=== PATIENT | male | born 1950 | race Caucasian/White ===

== ENCOUNTER 2020-05-21 09:38 | Day surgery (SDC) | payer MEDICARE, MEDICAID ==
[2020-05-21] VITALS (9 sets, daily range): BP systolic 112–154; BP diastolic 54–79
[~2020-05-21] VITALS: Ht 190.5 cm; Wt 63.9 kg
[2020-05-21] MEDS ORDERED: diphenhydrAMINE 25mg capsule PO PRN (10:10)
[2020-05-21] MEDS ORDERED: normal saline 1,000 ML IV SCH (10:10)
[2020-05-21 10:16] LABS: BASOPHILS % (AUTO) 0.4 % (0-1); EOSINOPHILS # (AUTO) 0.3 X10'3 (0-0.9); EOSINOPHILS % (AUTO) 2.8 % (0-6); HEMATOCRIT 42.7 % (42.0-52.0); HEMOGLOBIN 14.5 g/dl (14.0-17.9); LYMPHOCYTES # (AUTO) 1.6 X10'3 (1.1-4.8); LYMPHOCYTES % (AUTO) 15.5 % (21-51); MEAN CORPUSCULAR HEMOGLOBIN 32.9 PG (27.0-31.0); MEAN CORPUSCULAR VOLUME 96.6 FL (78-98); MEAN PLATELET VOLUME 7.7 FL (7.4-10.4); MONOCYTES # (AUTO) 0.9 X10'3 (0-0.9); MONOCYTES % (AUTO) 8.4 % (2-12); NEUTROPHILS # (AUTO) 7.5 X10'3 (1.8-7.7); NEUTROPHILS % (AUTO) 72.9 % (42-75); PLATELET COUNT 286 X10'3 (140-440); RED BLOOD COUNT 4.42 X10'6 (4.70-6.10); RED CELL DISTRIBUTION WIDTH 12.7 % (11.5-14.5); WHITE BLOOD COUNT 10.2 X10'3 (4.5-11.0)
[2020-05-21 10:26] LABS: ALBUMIN 3.7 G/DL (3.4-5.0); ANION GAP 5 (8-16); BLOOD UREA NITROGEN 19 MG/DL (7-18); CALCIUM 9.3 MG/DL (8.5-10.1); CHLORIDE 101 MMOL/L (99-107); CREATININE 1.46 MG/DL (0.60-1.10); GLUCOSE 144 MG/DL (70-104); MAGNESIUM 1.7 MG/DL (1.5-2.4); POTASSIUM 4.9 MMOL/L (3.5-5.1); SODIUM 137 MMOL/L (135-145); TOTAL CARBON DIOXIDE 31.5 MMOL/L (24-32); eGFR 48 ML/MIN
[2020-05-21] MEDS ORDERED: FOLIC ACID PO (10:28)
[2020-05-21] MEDS ORDERED: NABU-136 PO (10:28)
[2020-05-21] MEDS ORDERED: GABA600T13 PO (10:28)
[2020-05-21] MEDS ORDERED: ISOS60TA4 PO (10:28)
[2020-05-21] MEDS ORDERED: PROP10TA10 PO (10:28)
[2020-05-21] MEDS ORDERED: NITR0.4T48 PO (10:28)
[2020-05-21] MEDS ORDERED: PANT20TA18 PO (10:28)
[2020-05-21] MEDS ORDERED: FLUO-1 PO (10:28)
[2020-05-21] MEDS ORDERED: LEVO75TA7 PO (10:38)
[2020-05-21] MEDS ORDERED: METF1000 PO (10:38)
[2020-05-21] MEDS ORDERED: ASPI-611 PO (10:38)
[2020-05-21] MEDS ORDERED: MULT-1172 (10:38)
[2020-05-21] MEDS ORDERED: FERROUS SULFATE PO (10:38)
[2020-05-21] MEDS ORDERED: VITAMIN B (10:38)
[2020-05-21] MEDS ORDERED: BUSP30TA2 PO (10:38)
[2020-05-21] MEDS ORDERED: KCL (10:38)
[2020-05-21] MEDS ORDERED: ATOR40TA PO (10:38)
[2020-05-21] MEDS ORDERED: fentaNYL/PF 50MCG/1 ML 2ML syringe ONE (14:10)
[2020-05-21] MEDS ORDERED: iohexol 350 MG/ML 50ML vial IV ONE (14:10)
[2020-05-21] MEDS ORDERED: heparin 1,000unit/ml 10ml vial 10 ML ONE (14:10)
[2020-05-21] MEDS ORDERED: iohexol 350MG/ML 100ml bottle IV ONE (14:10)
[2020-05-21] MEDS ORDERED: proCHLORperazine 10 MG/2 ml inj ONE (14:10)
[2020-05-21] MEDS ORDERED: midazolam 2 mg/2 ml injection ONE (14:10)
[2020-05-21] MEDS ORDERED: LIDOcaine 1% (10mg/ml)w/preservative injection 20ml MDV ONE (14:35)
[2020-05-21] MEDS ORDERED: normal saline 1,000 ML IV ONE (15:25)
[2020-05-21] MEDS ORDERED: HYDROcodone/acetaminophen 10/325mg tab PO PRN (15:30)
[2020-05-21] MEDS ORDERED: proCHLORperazine 10 MG/2 ml inj IV PRN (15:30)
[2020-05-21] MEDS ORDERED: HYDROcodone/acetaminophen 5mg/325mg tablet PO PRN (15:30)
[2020-05-21] MEDS ORDERED: ondansetron/PF 4mg/2ml inj IV PRN (15:30)
== END 2020-05-21 18:40 | disposition home or self-care (01) ==
LOC: SSTAY O 09:38
PROVIDERS: ATTEND Internal Medicine Cardiovascular Disease
DX: R94.39 Abnormal result of other cardiovascular function study (principal); I25.10 Atherosclerotic heart disease of native coronary artery without angina pectoris; E11.22 Type 2 diabetes mellitus with diabetic chronic kidney disease; I12.9 Hypertensive chronic kidney disease with stage 1 through stage 4 chronic kidney disease, or unspecified chronic kidney disease; N18.9 Chronic kidney disease, unspecified; Z79.899 Other long term (current) drug therapy
CPT/HCPCS: 36415; 80048; 83735; 85025; 85610; 93005; 93458; 99152; C1760; C1769; C1894; J0780; J1644; J2001; J2250; J3010; J7030; Q0163; Q9967; A4620; A6258

== ENCOUNTER 2021-07-26 07:25 | Day surgery (SDC) | payer MEDICARE, MEDICAID ==
[2021-07-26] VITALS (10 sets, daily range): BP systolic 124–179; BP diastolic 52–161
[~2021-07-26] VITALS: Ht 185.4 cm; Wt 59.8 kg
[~2021-07-26 07:25] MED LIST: ASPI-611 PO; ATOR40TA PO; BUSP30TA2 PO; FERROUS SULFATE PO; FLUO-1 PO; FOLIC ACID PO; GABA600T13 PO; ISOS60TA71 PO; KCL; LEVO75TA7 PO; METF1000 PO; MULT-1172; NABU-141 PO; NITR0.4T48 PO; PANT20TA18 PO; PROP10TA10 PO; VITAMIN B
[2021-07-26] MEDS ORDERED: diphenhydrAMINE 25mg capsule PO PRN (07:45)
[2021-07-26] MEDS ORDERED: normal saline 1,000 ML IV SCH (07:45)
[2021-07-26 08:26] LABS: BASOPHILS % (AUTO) 0.4 % (0-1); EOSINOPHILS # (AUTO) 0.3 X10'3 (0-0.9); EOSINOPHILS % (AUTO) 4.5 % (0-6); HEMATOCRIT 42.8 % (42.0-52.0); HEMOGLOBIN 14.8 g/dl (14.0-17.9); LYMPHOCYTES # (AUTO) 1.4 X10'3 (1.1-4.8); LYMPHOCYTES % (AUTO) 22.5 % (21-51); MEAN CORPUSCULAR HEMOGLOBIN 33.3 PG (27.0-31.0); MEAN CORPUSCULAR HGB CONC 34.6 g/dL (33.0-36.5); MEAN CORPUSCULAR VOLUME 96.1 FL (78-98); MEAN PLATELET VOLUME 8.2 FL (7.4-10.4); MONOCYTES # (AUTO) 0.6 X10'3 (0-0.9); MONOCYTES % (AUTO) 10.7 % (2-12); NEUTROPHILS # (AUTO) 3.8 X10'3 (1.8-7.7); NEUTROPHILS % (AUTO) 61.9 % (42-75); PLATELET COUNT 249 X10'3 (140-440); RED BLOOD COUNT 4.45 X10'6 (4.70-6.10); RED CELL DISTRIBUTION WIDTH 12.2 % (11.5-14.5); WHITE BLOOD COUNT 6.1 X10'3 (4.5-11.0)
[2021-07-26 08:27] LABS: ALBUMIN 3.6 G/DL (3.4-5.0); ANION GAP 6 (8-16); BLOOD UREA NITROGEN 19 MG/DL (7-18); BUN/CREATININE RATIO 15.1 (5.4-32.0); CALCIUM 9.5 MG/DL (8.5-10.1); CHLORIDE 104 MMOL/L (99-107); CREATININE 1.26 MG/DL (0.60-1.10); GLUCOSE 136 MG/DL (70-104); MAGNESIUM 2.1 MG/DL (1.5-2.4); POTASSIUM 4.7 MMOL/L (3.5-5.1); SODIUM 140 MMOL/L (135-145); TOTAL CARBON DIOXIDE 30.1 MMOL/L (24-32); eGFR 57 ML/MIN
[2021-07-26] MEDS ORDERED: ATOR80TA PO (08:38)
[2021-07-26] MEDS ORDERED: LOSA25TA96 PO (08:44)
[2021-07-26] MEDS ORDERED: ISOSORBIDE MN (08:45)
[2021-07-26] MEDS ORDERED: MEMA10TA PO (08:48)
[2021-07-26] MEDS ORDERED: LIDOcaine 1% (10mg/ml)w/preservative injection 20ml MDV ONE (08:49)
[2021-07-26] MEDS ORDERED: fentaNYL/PF 50MCG/1 ML 2ML syringe ONE (08:49)
[2021-07-26] MEDS ORDERED: iohexol 350MG/ML 100ml bottle IV ONE (08:49)
[2021-07-26] MEDS ORDERED: midazolam 1 mg/ML 2ml injection ONE (08:49)
[2021-07-26] MEDS ORDERED: iohexol 350 MG/ML 50ML vial IV ONE (08:49)
[2021-07-26] MEDS ORDERED: heparin 1,000unit/ml 10ml vial 10 ML ONE (08:49)
[2021-07-26] MEDS ORDERED: normal saline 1000ml 1,000 ML IV SCH (10:20)
[2021-07-26] MEDS ORDERED: ondansetron/PF 4mg/2ml inj IV PRN (10:20)
[2021-07-26] MEDS ORDERED: HYDROcodone/acetaminophen 10/325mg tab PO PRN (10:20)
[2021-07-26] MEDS ORDERED: acetaminophen 325mg tablet PO PRN (10:20)
[2021-07-26] MEDS ORDERED: proCHLORperazine 10 MG/2 ml inj IV PRN (10:20)
[2021-07-26] MEDS ORDERED: HYDROcodone/acetaminophen 5mg/325mg tablet PO PRN (10:20)
== END 2021-07-26 14:15 | disposition home or self-care (01) ==
LOC: SSTAY O 07:25
PROVIDERS: ATTEND Internal Medicine Cardiovascular Disease
DX: R94.39 Abnormal result of other cardiovascular function study (principal); I25.10 Atherosclerotic heart disease of native coronary artery without angina pectoris; I08.0 Rheumatic disorders of both mitral and aortic valves; E11.9 Type 2 diabetes mellitus without complications; I10 Essential (primary) hypertension; E78.5 Hyperlipidemia, unspecified; J44.9 Chronic obstructive pulmonary disease, unspecified; G47.30 Sleep apnea, unspecified; F17.210 Nicotine dependence, cigarettes, uncomplicated; Z95.5 Presence of coronary angioplasty implant and graft; Z79.82 Long term (current) use of aspirin; Z79.84 Long term (current) use of oral hypoglycemic drugs; Z79.899 Other long term (current) drug therapy
CPT/HCPCS: 36415; 80048; 83735; 85025; 85610; 93005; 93460; 99152; 99153; C1751; C1760; C1769; C1894; J1644; J2250; J3010; J3490; J7030; Q0163; Q9967; A4620; A4663; A6258